=== PATIENT | female | born 1985 | race Caucasian/White ===

== ENCOUNTER 2023-08-24 09:12 | Outpatient (CLI) | payer OTHER, SELFPAY | END 2023-08-24 09:13 | disposition home or self-care (01) | PROVIDERS: Visit Provider Physician Assistant | DX: Z01.419 Encounter for gynecological examination (general) (routine) without abnormal findings (principal); I10 Essential (primary) hypertension; E66.9 Obesity, unspecified; Z13.6 Encounter for screening for cardiovascular disorders; Z13.1 Encounter for screening for diabetes mellitus | CPT/HCPCS: 80061; 82947 ==

== ENCOUNTER 2023-11-22 07:46 | Outpatient (CLI) | payer OTHER, SELFPAY ==
--- NOTE | 2023-11-22 08:15 | MM_ITS ---
Patient: JABARI JUSTICE Facility:?[facility] Patient ID:?[id number] Site Patient ID:?[id number]. Site :?1985 Study:?XRay-Breast Bilateral 3D W/CAD-11/22/2023 8:34:55 AM Ordering Physician:Kourtney November Final Report: BILATERAL DIGITAL SCREENING MAMMOGRAM WITH TOMOSYNTHESIS AND COMPUTER-AIDED DETECTION CLINICAL HISTORY: Routine screening exam. COMPARISON: None. TECHNIQUE: Digital mammogram in CC and MLO projections including computer-aided detection (CAD). Tomosynthesis utilized. BREAST COMPOSITION: There are areas of scattered fibroglandular density. FINDINGS: RIGHT Breast: No suspicious findings. LEFT Breast: Focal nodular density upper outer quadrant 6 cm from the nipple. IMPRESSION: LEFT breast asymmetry/mass. RECOMMENDATIONS: Additional mammographic views of the LEFT breast including 3D spot compression CC/MLO. LEFT breast ultrasound may also be required. BI-RADS Category 0: Incomplete: Need Additional Imaging Evaluation and/or Prior Mammograms for Comparison [facility] will contact the patient for follow-up. A lay language report of this examination will be provided to the patient. Dictated by Kartik Drake MD @ 11/22/2023 12:24:32 PM jj/Dictated by: Kartik Drake MD @ 11/22/2023 12:24:00 PM Signed by:?Kartik Drake MD @11/22/2023 12:58:00 PM (Electronic Signature)
== END 2023-11-22 07:47 | disposition home or self-care (01) ==
LOC: MAMMO 07:47
PROVIDERS: Visit Provider Physician Assistant
DX: Z12.31 Encounter for screening mammogram for malignant neoplasm of breast (principal); N63.20 Unspecified lump in the left breast, unspecified quadrant
CPT/HCPCS: 77063; 77067

== ENCOUNTER 2023-11-27 17:45 | Outpatient (CLI) | payer OTHER, SELFPAY | END 2023-11-27 17:46 | disposition home or self-care (01) | LOC: NFLDREF 11-28 07:23 | PROVIDERS: Visit Provider Physician Assistant | DX: R30.0 Dysuria (principal) | CPT/HCPCS: 87086; 87186 ==

== ENCOUNTER 2023-12-24 07:39 | Outpatient (CLI) | payer OTHER, SELFPAY ==
--- NOTE | 2023-12-24 07:45 | MM_ITS ---
Patient: JABARI JUSTICE Facility:?[facility] Patient ID:?[id number] Site Patient ID:?[id number] Site :?1985 Study:?XRay-Breast Left 3D W/CAD-12/24/2023 8:30:56 AM Ordering Physician:?Not A Local Final Report: DIGITAL DIAGNOSTIC LEFT MAMMOGRAM USING TOMOSYNTHESIS AND COMPUTER-AIDED DETECTION LEFT BREAST ULTRASOUND CLINICAL HISTORY: LEFT breast mass/asymmetry. COMPARISON: 11/22/2023. TECHNIQUE: Digital LEFT mammogram in two projections. Tomosynthesis and computer-aided detection were utilized. Real-time ultrasound imaging of LEFT breast with imaging documentation. BREAST COMPOSITION: There are areas of scattered fibroglandular density. FINDINGS: 3D spot compression CC/MLO LEFT breast mammogram images submitted. Persistent lobular nodular density lateral LEFT breast without architectural distortion. No suspicious calcifications. Targeted LEFT breast ultrasound performed 3 o`clock 8 cm from the nipple. A benign intramammary lymph node is present measuring 9 x 4 x 5 millimeters. No cortical thickening. Normal vascularity. IMPRESSION: Benign intramammary lymph node LEFT breast 3 o`clock 8 cm from the nipple measuring 9 millimeters. No suspicious findings. RECOMMENDATIONS: Annual BILATERAL screening mammography. Results and recommendations discussed with the patient. BI-RADS Category 2: Benign A lay language report of this examination will be provided to the patient. Dictated by Kartik Drake MD @ 12/24/2023 9:07:37 AM jj/Dictated by: Kartik Drake MD @ 12/24/2023 9:07:00 AM Signed by:?Kartik Drake MD @12/24/2023 12:47:54 PM (Electronic Signature)
--- NOTE | 2023-12-24 08:15 | US_ITS ---
Patient: JABARI JUSTICE Facility:?[facility] Patient ID:?[id number] Site Patient ID:?[id number] Site :?1985 Study:?US-Breast Left Dr. Drake to read-12/24/2023 8:48:43 AM Ordering Physician:?Kamilah November Final Report: PLEASE SEE DIGITAL DIAGNOSTIC LEFT MAMMOGRAM PERFORMED SAME DAY. CRL:cassidy/Dictated by: Kartik Drake MD @ 12/24/2023 9:07:00 AM SP/Dictated by: Kartik Drake MD @ 12/24/2023 9:07:00 AM Signed by:?Kartik Drake MD @12/24/2023 5:13:44 PM (Electronic Signature)
== END 2023-12-24 07:40 | disposition home or self-care (01) ==
LOC: MAMMO 07:40
PROVIDERS: Visit Provider Physician Assistant
DX: N63.20 Unspecified lump in the left breast, unspecified quadrant (principal); R92.8 Other abnormal and inconclusive findings on diagnostic imaging of breast
CPT/HCPCS: 76642; 77065; G0279

== ENCOUNTER 2024-12-11 11:15 | Outpatient (CLI) | payer OTHER, SELFPAY ==
--- NOTE | 2024-12-11 11:30 | CRLHL7_ITS ---
For Patients: As a result of the Century Cures Act, medical imaging exams and procedure reports are released immediately into your electronic medical record. You may view this report before your referring provider. If you have questions, please contact your health care provider. INDICATION: BILATERAL SCREENING MAMMOGRAM, ASYMPTOMATIC 39 Y/O FEMALE COMPARISON: 11/22/23 TECHNIQUE: CC and MLO views were obtained. These mammographic images have been obtained using full-field digital technique. These mammographic images were interpreted with the benefit of computer aided detection and tomosynthesis. BREAST COMPOSITION: There are scattered areas of fibroglandular density. FINDINGS: No suspicious findings. ASSESSMENT: BI-RADS 1 Negative RECOMMENDATION: Annual screening mammogram. A lay language report of this examination will be provided to the patient. Dictated by: Kartik Drake MD @ 12/18/2024 13:04:24 (Electronically Signed)
== END 2024-12-11 11:16 | disposition home or self-care (01) ==
LOC: MAMMO 11:16
PROVIDERS: Visit Provider Physician Assistant
DX: Z12.31 Encounter for screening mammogram for malignant neoplasm of breast (principal)
CPT/HCPCS: 77063; 77067

== ENCOUNTER 2025-07-07 08:48 | Outpatient (CLI) | payer OTHER, SELFPAY | END 2025-07-07 08:49 | disposition home or self-care (01) | LOC: NFLDREF 07-13 03:47 | PROVIDERS: Visit Provider Physician Assistant | DX: Z13.1 Encounter for screening for diabetes mellitus (principal); Z13.6 Encounter for screening for cardiovascular disorders | CPT/HCPCS: 80061; 82947 ==